=== PATIENT | female | born 1970 | race Two or more races ===

== ENCOUNTER 2019-02-08 01:42 | Inpatient (IN) | payer OTHER ==
[~2019-02-08] VITALS: Ht 157.5 cm; Wt 77.6 kg
[2019-02-08 09:30] VITALS: BP 108/65
[2019-02-08] MEDS ORDERED: IV NS 0.9% 1,000 ML IV PRN (09:34)
[2019-02-08 10:00] VITALS: BP 114/60
[2019-02-08] MEDS ORDERED: ACETAMINOPHEN 325 MG TABLET PO PRN (10:00)
[2019-02-08] MEDS ORDERED: METF-440 PO (10:00)
[2019-02-08] MEDS ORDERED: CHOL20004 PO (10:00)
[2019-02-08] MEDS ORDERED: ESCI10TA PO (10:00)
[2019-02-08] MEDS ORDERED: MAGNESIUM HYDROXIDE 30 ML UDC PO PRN (10:00)
[2019-02-08] MEDS ORDERED: MAG HYDROX/AL HYDROX/SIMETH 30 ML UDC PO PRN (10:00)
[2019-02-08] MEDS ORDERED: ONDANSETRON HCL/PF 4 MG/2 ML VIAL IVP PRN (10:00)
[2019-02-08] MEDS ORDERED: Z GUARD REMEDY 2 OZ OINT TP PRN (10:00)
[2019-02-08] MEDS ORDERED: GABA-532 PO (10:00)
[2019-02-08] MEDS ORDERED: SIMV10TA98 PO (10:00)
--- NOTE | 2019-02-08 10:00 | NUR ---
MS/RN - Admission Received a direct admit from [facility], alert and oriented x 2, with periods of confusion, reality orientation given, denies pain, stable on room air, afebrile, ambulatory with steady gait. Admitted for ALOC/Encephalitis under the care of Dr. Pineda. Patient oriented to room, all belongings accounted for. Inserted peripheral IV on the LAC with good blood return. Skin assessment done, no skin breakdown, refused photo to be taken. Fall and aspiration precautions initiated. Discussed plan of care with patient and sister Sanjana at bedside and in agreement. Admission orders noted and carried out. Sitter at bedside due to AWOL risk. Will continue to monitor closely.
[2019-02-08 10:42] LABS: BASOPHILS # (AUTO) 0.1 /CMM (0.0-0.2); BASOPHILS % (AUTO) 0.9 % (0.0-2.0); EOSINOPHILS % (AUTO) 1.9 % (0.0-6.0); HEMATOCRIT 37 % (33-45); HEMOGLOBIN 12.2 g/dL (11.5-14.8); LYMPHOCYTES # (AUTO) 3.3 /CMM (0.8-4.8); LYMPHOCYTES % (AUTO) 27.3 % (20.0-44.0); MEAN CORPUSCULAR HGB CONC 33 g/dl (31.0-36.0); MEAN CORPUSCULAR VOLUME 87 fL (82-100); MONOCYTES # (AUTO) 0.8 /CMM (0.1-1.30); MONOCYTES % (AUTO) 6.7 % (2.0-12.0); NEUTROPHILS # (AUTO) 7.7 /CMM (1.8-8.9); NEUTROPHILS % (AUTO) 63.2 % (43.0-81.0); PLATELET COUNT (AUTO) 326 /CMM (150-450); RED BLOOD CELL COUNT(AUTO) 4.26 MIL/uL (4.0-5.2); WHITE BLOOD COUNT (AUTO) 12.1 K/uL (4.3-11.0)
[2019-02-08 10:45] LABS: APPEARANCE,URINE TURBID (CLEAR); BILIRUBIN,URINE NEGATIVE (NEGATIVE); BLOOD, URINE TRACE-INTA Ery/uL (NEGATIVE); COLOR,URINE YELLOW (YELLOW); KETONES,URINE NEGATIVE (NEGATIVE); LEUKOCYTE ESTERASE ,URINE NEGATIVE (NEGATIVE); NITRITE, URINE NEGATIVE (NEGATIVE); PH,URINE 8.5 (5.0-8.0); PROTEIN,URINE NEGATIVE (NEGATIVE); UGLUCOSE NEGATIVE (NEGATIVE); UROBILINOGEN,URINE 0.2 EU/dL (0.2)
[2019-02-08 11:05] LABS: ALBUMIN 3.4 g/dL (3.4-5.0); BILIRUBIN,TOTAL 0.2 mg/dL (0.2-1.0); CALCIUM, SERUM 8.9 mg/dL (8.5-10.1); CREATININE 0.6 mg/dL (0.6-1.3); MAGNESIUM 2.1 mg/dL (1.8-2.4); PHOSPHORUS 3.7 mg/dL (2.5-4.9); POTASSIUM 3.8 mmol/L (3.5-5.1); TOTAL PROTEIN, SERUM 7.4 g/dL (6.4-8.2)
[2019-02-08 11:13] LABS: THYROID STIMULATING HORMONE 2.127 uIU/mL (0.358-3.74)
[2019-02-08 11:44] LABS: BACTERIA,URINE Rare /HPF (None Seen); RBC,URINE 0-2 /HPF (0-2); SQUAMOUS EPITHELIAL CELL,UR Rare /HPF (None Seen); URINE AMORPHOUS PHOSPHATES Many /HPF (None Seen); WBC,URINE 0-2 /HPF (0-3)
--- NOTE | 2019-02-08 17:31 | NUR ---
MS/RN - End of shift summary Patient in no acute distress, A/O x 2, frequent reorientation given, pacing in the room and hallway, 1:1 sitter for safety (AWOL risk). Pending psych consult with Dr. Morrison. All needs attended. Will continue with current plan of care.
--- NOTE | 2019-02-08 19:00 | NUR ---
MS RN NOTE RECEIVED PT IN STABLE CONDITION A/O X2, NOTED WITH 1:1 SITTER. CURRENTLY WALKING AROUND FLOOR. NO SIGNS OF SOB OR DISTRESS, NO INDICATIONS OF PAIN OR N/V. IV IN LAC #[address] S/L. NO INDICATIONS OF SI OR HI. PSYCH EVAL PENDING. ALL CURRENT NEEDS ATTENDED TO. BED LOW, LOCKED, UPPER RAILS UP AND CALL LIGHT WITHIN REACH. WILL CONT. TO MONITOR.
[2019-02-09 01:10] VITALS: BP 110/68
--- NOTE | 2019-02-09 06:06 | NUR ---
MS RN NOTE PT REMAINS IN STABLE CONDITION A/O X2, NOTED WITH 1:1 SITTER. CURRENTLY RESTING IN BED. NO SIGNS OF SOB OR DISTRESS, NO INDICATIONS OF PAIN OR N/V. IV IN LAC #[address] S/L. NO INDICATIONS OF SI OR HI. ALL CURRENT NEEDS ATTENDED TO. BED LOW, LOCKED, UPPER RAILS UP AND CALL LIGHT WITHIN REACH. WILL ENDORSE TO NEXT SHIFT FOR NIURKA.
[2019-02-09 07:44] LABS: BASOPHILS % (AUTO) 0.4 % (0.0-2.0); CALCIUM, SERUM 8.6 mg/dL (8.5-10.1); CREATININE 0.6 mg/dL (0.6-1.3); HEMATOCRIT 37 % (33-45); HEMOGLOBIN 12.2 g/dL (11.5-14.8); LYMPHOCYTES # (AUTO) 2.2 /CMM (0.8-4.8); LYMPHOCYTES % (AUTO) 17.2 % (20.0-44.0); MAGNESIUM 2.1 mg/dL (1.8-2.4); MEAN CORPUSCULAR HGB CONC 33 g/dl (31.0-36.0); MEAN CORPUSCULAR VOLUME 87 fL (82-100); MONOCYTES % (AUTO) 7.5 % (2.0-12.0); NEUTROPHILS # (AUTO) 9.5 /CMM (1.8-8.9); NEUTROPHILS % (AUTO) 72.9 % (43.0-81.0); PHOSPHORUS 2.9 mg/dL (2.5-4.9); PLATELET COUNT (AUTO) 312 /CMM (150-450); POTASSIUM 3.7 mmol/L (3.5-5.1); RED BLOOD CELL COUNT(AUTO) 4.28 MIL/uL (4.0-5.2)
[2019-02-09 08:00] VITALS: BP 134/76
--- NOTE | 2019-02-09 08:00 | NUR ---
RN NOTES RECEIVED PATIENT IN THE BED A/O X2/3. DISORGANIZED THOUGHTS, KEEP WALKING IN THE HALLWAY, BUT REDIRECTABLE, AZERI SPEAKER. V/S STABLE. 1:1 SITTER NEXT TO THE BED FOR SAFETY. SEEN PATIENT BY HOSPITALIST Dr MILLER. PLAN TODAY SEE PSYCHIATRIST. CONTINUED MONITORING.
--- NOTE | 2019-02-09 13:56 | NUR ---
rn notes patient in the room waking around, disorganized thoughts, confused, removed iv access, seen patient by neuro MD , 1:1 sitter next to the bed for safety. continued monitoring.
[2019-02-09 16:00] VITALS: BP 118/80
--- NOTE | 2019-02-09 18:30 | NUR ---
RN NOTES PATIENT WALKING IN THE HALLWAY, 1:1 SITTER NEXT TO THE BED FOR SAFETY. STILL WAITING FOR PSYCHIATRIST Dr DEL VALLE FOR CONSULTATION. PATIENT REDIRECTABLE, AND KEEP GOING BATHROOM. ENDORSED ONCOMING NURSE FOLLOW PLAN OF CARE.
--- NOTE | 2019-02-09 19:20 | NUR ---
CHANGE OF SHIFT REPORT Patient is ambulating independently, appears restless. Pleasant but confused, always pacing in the hallway. Awaiting psych consult. Maintained safety, sitter in place.
[2019-02-09 20:00] VITALS: BP 131/75
[2019-02-09 20:40] VITALS: BP 131/75
[2019-02-09] MEDS: HALOPERIDOL 5 MG TABLET PO SCH (20:51)
[2019-02-09] MEDS: BENZTROPINE MESYLATE (1 MG) 1 MG TABLET PO SCH (20:51)
--- NOTE | 2019-02-09 23:05 | NUR ---
UNCONTROLLED BEHAVIOR Patient is uncooperative, pacing, restless. Declined education, refused to listen. Impulsive behavior, disturbance behavior to others, uncontrolled behavior. Notified MD, spoke with Dr. Morrison/psych. Will administer PRN medication, maintained safety.
[2019-02-09] MEDS ORDERED: HALOPERIDOL LACTATE INJ 5 MG/ML VIAL IM ONE (23:30)
[2019-02-09] MEDS ORDERED: diphenhydrAMINE HCL 50 MG/ML VIAL IM ONE (23:30)
[2019-02-09] MEDS ORDERED: LORAZEPAM INJ 2 MG/ML VIAL IM ONE (23:30)
--- NOTE | 2019-02-10 06:24 | NUR ---
END OF SHIFT REPORT Patient in bed, remains confused. Haldol IM, Ativan IM, Benadryl IM x1 order effective, behavior improved, able to calm down and slept for total 5 hours last night. Ambulates independently, stable oxygen saturation on RA, no c/o any discomfort. Fall precaution maintained, sitter in place. Psych following.
--- NOTE | 2019-02-10 07:30 | NUR ---
ms rn received on bed, awake,alert,oriented x1,not in any form of distress,respirations even and unlabored,no sob noted, lungs are clear,abdomen soft,positive bowel sounds,denies pain,at this time,all needs attended. psych patient, w/ sitter for safety and comfort.
[2019-02-10] MEDS: HALOPERIDOL 5 MG TABLET PO SCH ×3 (08:24→17:34)
[2019-02-10] MEDS: BENZTROPINE MESYLATE (1 MG) 1 MG TABLET PO SCH ×3 (08:24→17:34)
--- NOTE | 2019-02-10 09:10 | NUR ---
ms martell breakfast served,due meds given,tolerated well.
[2019-02-10 09:45] VITALS: BP 110/74
--- NOTE | 2019-02-10 15:01 | NUR ---
ms rn on bed, no distress noted.
[2019-02-10 16:00] VITALS: BP 122/62
--- NOTE | 2019-02-10 18:54 | NUR ---
ms rn on bed, no distress noted,all needs attended.
--- NOTE | 2019-02-10 19:08 | NUR ---
CHANGED OF SHIFT REPORT Patient ambulates independently, behavior becoming more controlled per report. Conversant and pleasant today, less pacing in the hallway. Denies pain. Remains sitter, maintained safety.
[2019-02-10 20:00] VITALS: BP 109/64
--- NOTE | 2019-02-11 06:31 | NUR ---
END OF SHIFT REPORT Patient in bed, behavior improved. Ambulates independently, stable oxygen saturation on RA, no c/o any discomfort. Good appetite, good liquid intact. Fall precaution maintained, sitter in place. Psych following.
--- NOTE | 2019-02-11 07:30 | NUR ---
MS/RN Opening note Patient received in the room with supriya Murphy at the bedside, A/O x2, walking back and forth across the room. Patient is in no acute distress at this time, Vital signs WNL. No IV noted on the patient. Safety and fall precautions enforced. Will continue with plan of care.
[2019-02-11 08:00] VITALS: BP 134/95
[2019-02-11] MEDS: HALOPERIDOL 5 MG TABLET PO SCH ×2 (08:10→12:20)
[2019-02-11] MEDS: BENZTROPINE MESYLATE (1 MG) 1 MG TABLET PO SCH ×2 (08:10→12:20)
--- NOTE | 2019-02-11 10:00 | NUR ---
MS/RN note Patient has order for DC per MD. Spoke with Sanjana (patient's sister) and gave update on patient and discussed plan for discharge. Will inform sister when patient is ready to be picked up by the sister in private car.
[2019-02-11] MEDS ORDERED: HALO5TAB8 PO (10:21)
[2019-02-11] MEDS ORDERED: BENZ1TAB7 PO (10:21)
--- NOTE | 2019-02-11 13:05 | NUR ---
MS/collection technician note Patient is medically stable for discharge, MD aware. Patient is in no acute distress, no SOB, saturating >95% on RA. Patient is A/O x2, sitter is at the bedside. Vital signs WNL. Skin assessed, pictures taken and placed in chart, no new skin breakdown noted. No IV noted on the patient. ID band removed. Patient has all belongings with them and belongings list signed and placed in chart. Patient kept clean and dry throughout shift, all patient needs met, all due meds given. DC instructions provided to patient's sister Sanjana and patient. Sanjana and patient verbalizes understanding. Patient is going home in a private car accompanied by the sister and family.
== END 2019-02-11 13:05 | disposition home or self-care (01) | DRG 751 ==
LOC: TELE 08:25 → MED 10:05
PROVIDERS: ADMIT Internal Medicine; ATTEND Internal Medicine
DX: F29 Unspecified psychosis not due to a substance or known physiological condition (principal); G93.40 Encephalopathy, unspecified; E06.3 Autoimmune thyroiditis; Z86.61 Personal history of infections of the central nervous system; Z79.84 Long term (current) use of oral hypoglycemic drugs; F39 Unspecified mood [affective] disorder; Z79.899 Other long term (current) drug therapy
CPT/HCPCS: 36415; 80048-TC; 80053-TC; 80061-TC; 81000-TC; 83735-TC; 84100-TC; 84425; 84439-TC; 84443-TC; 84703-TC; 85025-TC; 87081-TC; G0378; J1200; J1630; J2060; J2405; J7030